=== PATIENT | male | born 2005 | race Caucasian/White ===

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

== ENCOUNTER 2025-01-16 15:04 | Emergency (ER) | payer OTHER, SELFPAY ==
[2025-01-16 15:43] VITALS: BP 123/68; PULSE 79; RESP 18; TEMP 36.8; O2SAT 100
--- NOTE | 2025-01-16 15:47 | ED.GENADULT ---
HPI - General Adult General Chief complaint: Head Injury Stated complaint: fell hit back of head/laceration/headache Time Seen by Provider: 01/16/25 17:00 History of Present Illness ED Provider: Colton Yip MD HPI narrative: 19-year-old male healthy no medications fell from standing height back onto the occiput but denies neck pain back injury or any other injuries. Currently denies any headache to me no nausea vomiting no vision changes no focal deficits Related Data Allergies Allergy/AdvReac Type Severity Reaction Status Date / Time No Known Allergies Allergy Verified 01/16/25 15:46 [facility] Social History Social History Smoked in Last 30 Days: No Use of substances other than those prescribed or required for medical reasons: No Advance Directives: No Advance Directives Information Provided: No Physical Exam ED Vital Signs: Vital Signs - 24 hr 01/16/25 17:19 01/16/25 17:26 Temperature 98.0 F 98.0 F Pulse Rate 72 72 Respiratory Rate 16 16 Blood Pressure 120/74 120/74 Pulse Oximetry 100 100 Oxygen Delivery Method Room Air Room Air BMI result Body Mass Index 20.0 Const Other: EXAM: Gen: Alert, awake, well appearing, well hydrated. Head: 0.5 cm laceration very superficial posterior occiput. No crepitus no other injuries to the scalp Eyes: Anicteric, Normal conjunctiva. ENT: Moist mucosa, no pallor. ? Neck: Supple. Skin: ?No observable rash or bruising on exposed or examined skin Respiratory: Breathing comfortably, No distress.Clear to auscultation bilaterally, symmetric chest expansion, No wheeze, rales, ronchi. Cardiovascular: Regular rate and rhythm. No murmurs or rub. Well perfused periphery, warm extremities. No edema. ? Abdominal: No FOCAL TENDERNESS. Soft, no objective distension. No palpable masses or obvious organomegaly. ?No guarding, no rebound tenderness or other peritoneal findings. : No flank tenderness. Neuro: Alert. Gross movement of all extremities intact. ? Psych: Calm. Cooperative. MSK: No grossly visible deformity. Vital signs: See flowsheet Course Course Course Narrative: RME, this is a rapid medical exam performed by Gurpreet Espinoza please refer to primary provider for complete H&P- 19 year old male presents for evaluation of a head injury. He was messing around and fell backwards. He struck his head on tile. He is unsure if he lost consciousness. He has a small laceration to the posterior scalp. No neuro deficits in triage Procedures Laceration Laceration 1: Site: scalp (occiput) Size (cm): 0.5 Description: linear Depth: simple, single layer Pre-repair: wound explored and irrigated extensively Size (cm): other (ORTIZ x 1) Medical Decision Making Medical Decision Making MDM Narrative: fall, head strike. no other inuries. normal gait. denies significant headache, no dizzy, vision changes. 0.5cm lac occiput. no AC. No indication for CT by [place] CT head rules. Discharge Plan Discharge Clinical Impression: Closed head injury, Laceration of head Patient Disposition: Home, Self-Care Instructions: Staple Care (ED), Head Laceration (ED) Additional Instructions: Ortiz need to be removed in 7 -10 days/ Interventions: ED Discharge Assessment Last Done: 01/16/25 17:19 Discharge Date/Time: 01/16/25 17:28 Print Language: Thai
[2025-01-16 17:19] VITALS: BP 120/74; PULSE 72; RESP 16; TEMP 36.7; O2SAT 100
[2025-01-16 17:26] VITALS: BP 120/74; PULSE 72; RESP 16; TEMP 36.7; O2SAT 100
--- OUTSIDE RECORDS SUMMARY | 2025-01-16 18:22 | XMS_ITS | Patient Health Record ---
Author Organization [facility] Address [address] [place] [address] Care Team Providers Care Fishing Instructor Name Role Phone JULIOMackenzie NICKI Primary Care Provider [phone] JULIO Stoddard Unavailable [phone] Allergies Allergen (clinical drug ingredient) Drug/Non Drug Allergy documented on EMR Reaction Allergy Type Onset Date Status lactose Lactose (Intolerance) Unknown Drug Allergy Active Reason For Referral No Information Medications Medication SIG (Take, Route, Frequency, Duration) Notes Start Date End Date Status DULoxetine HCl 30 MG 1 capsule Orally On ce a day for 30 day(s) 01/29/2021 Active DULoxetine HCl 30 MG 1 capsule Orally On ce a day for 90 days 10/20/2020 Not-Taking Adderall XR 10 MG 1 capsule in the mor denis Orally F90.9 Once a day for 90 days 11/19/2020 Not-Taking Immunizations Vaccine Route Administration Date Status Comme nts Varicella(2 dose)(12 months-18 yrs) Unknown 04/13/2006 Administered Varicella(2 dose)(12 months-18 yrs) Unknown 06/29/2010 Administered Tdap Boostrix Unknown 01/19/2017 Administered Pneumococcal conjugate PCV 7 Unknown 2005 Administered Pneumococcal conjugate PCV 7 Unknown 2005 Administered Pneumococcal conjugate PCV 7 Unknown 2005 Administered Pneumococcal conjugate PCV 7 Unknown 04/13/2006 Administered MMR II Unknown 04/13/2006 Administered MMR II Unknown 06/29/2010 Administered Men ACYW Menactra Unknown 01/19/2017 Administered IPV Unknown 2005 Administered IPV Unknown 2005 Administered IPV Unknown 2005 Administered IPV Unknown 06/29/2010 Administered Infanrix Unknown 06/29/2010 Administered Hib, unspecified formulation Unknown 2005 Administered Hib, unspecified formulation Unknown 2005 Administered Hib, unspecified formulation Unknown 2005 Administered Hib, unspecified formulation Unknown 12/28/2006 Administered Hep B, ENGERIX-B Unknown 2005 Administered Hep B, ENGERIX-B Unknown 2005 Administered Hep B, ENGERIX-B Unknown 2005 Administered Hep B, ENGERIX-B Unknown 2005 Administered Hep A (2 dose) 12 mo-18yrs Unknown 07/06/2011 Administe red Hep A (2 dose) 12 mo-18yrs Unknown 04/02/2013 Administe red Flulaval 6m+ IM Intramuscular 04/21/2020 Administered DTaP, Unknown Unknown 2005 Administered DTaP, Unknown Unknown 2005 Administered DTaP, Unknown Unknown 2005 Administered DTaP, Unknown Unknown 12/28/2006 Administered Social History Tobacco Use: Social History Observation Description Date Details (start date - stop date) Never Smoker NA - NA Tobacco Use/Smoking Question Answer Notes Are you a nonsmoker Alcohol Screen (Audit-C) Question Answer Notes Did you have a drink containing alcohol in the p ast year? No Points 0 Interpretation Negative Sexual History Question Answer Notes Had sex in the past 12 months (vaginal, oral, or anal)? No Have you ever had a Sexually transmitted disease ? No Problems Problem Type SNOMED Code ICD Code Onset Dates Problem Status W/U Status Risk Notes Problem 60724915 Depression, unspecified depression type (F32.9) Active confirmed Problem 077622497 Lactose intolerance (E73.9) Active confirmed Problem 62065298 Viral warts, unspecified type (B07.9) Active confirmed Problem Attention defici t disorder of childhood with hyperactivity (F90.9) Active confirmed Problem 736588303 Acute pharyngiti s, unspecified etiology (J02.9) Problem resolved confirmed Problem 90336320 Hyperactivity (behavior) (F90.9) Problem resolved confirmed Plan Of Treatment Pending Test Test Name Order Date X ray : Foot, right 09/03/2021 Strep Gp A Direct, DNA Probe 11/07/2017 Throat culture 11/07/2017 Insurance Providers Payer Name Payer Address Payer Phone Subscriber Number Group Number Insured Name Patient Relationship to Insured Coverage Start Date Coverage End Date [employer] [place] [address] [place], [place] [id number] [place] Self - patient is the insured 3 Medical (General) History Medical History History ICD Code Acute pharyngitis, unspecified etiology (resolved 08/08/2019) Hyperactivity (behavior) (resolved 09/08) undefined Surgical History Surgery Date(Month/Year) Hernia repair 2017
== END 2025-01-16 17:28 | disposition home or self-care (01) ==
PROVIDERS: Emergency Provider Emergency Medicine
DX: S01.01XA Laceration without foreign body of scalp, initial encounter (principal); R51.9 Headache, unspecified; X58.XXXA Exposure to other specified factors, initial encounter; Y93.9 Activity, unspecified; Y92.9 Unspecified place or not applicable; Y99.8 Other external cause status
CPT/HCPCS: 12031; 99284